=== PATIENT | female | born 1980 | race Caucasian/White ===

== ENCOUNTER 2018-06-26 03:35 | Inpatient (IN) | payer MEDICAID ==
[~2018-06-26] VITALS: Ht 160 cm; Wt 52.1 kg
[2018-06-26] MEDS ORDERED: normal saline 1000ML IV soln IVB ONE (03:55)
[2018-06-26 04:16] LABS: BASOPHILS % (AUTO) 0.1 % (0-1); EOSINOPHILS # (AUTO) 0.1 X10'3 (0-0.9); EOSINOPHILS % (AUTO) 1.8 % (0-6); HEMATOCRIT 41.9 % (35.0-45.0); HEMOGLOBIN 13.9 g/dl (12.0-16.0); MEAN CORPUSCULAR HEMOGLOBIN 31.3 PG (27.0-31.0); MEAN CORPUSCULAR HGB CONC 33.1 % (33.0-36.5); MEAN CORPUSCULAR VOLUME 94.7 FL (78-98); MEAN PLATELET VOLUME 7.9 FL (7.4-10.4); MONOCYTES # (AUTO) 0.6 X10'3 (0-0.9); MONOCYTES % (AUTO) 7.3 % (2-12); NEUTROPHILS # (AUTO) 4.2 X10'3 (1.8-7.7); NEUTROPHILS % (AUTO) 52.8 % (42-75); PLATELET COUNT 393 X10'3 (140-440); RED BLOOD COUNT 4.42 X10'6 (4.20-5.60); RED CELL DISTRIBUTION WIDTH 13.4 % (11.5-14.5)
[2018-06-26 04:39] LABS: ALANINE AMINOTRANSFERASE 15 U/L (12-78); ALBUMIN 4.3 G/DL (3.4-5.0); ALBUMIN/GLOBULIN RATIO 1.3 (1.1-1.5); ALKALINE PHOSPHATASE 61 IU/L (46-116); ANION GAP 9 (8-16); ASPARTATE AMINO TRANSFERASE 9 U/L (10-37); BILIRUBIN,TOTAL 0.3 MG/DL (0.1-1.0); BLOOD UREA NITROGEN 9 MG/DL (7-18); BUN/CREATININE RATIO 13.2 (6.6-38.0); CALCIUM 9.6 MG/DL (8.5-10.1); CHLORIDE 104 MMOL/L (99-107); CREATININE 0.68 MG/DL (0.40-0.90); GLUCOSE 181 MG/DL (70-104); POTASSIUM 3.4 MMOL/L (3.5-5.1); SODIUM 141 MMOL/L (135-145); TOTAL CARBON DIOXIDE 27.7 MMOL/L (24-32); TOTAL PROTEIN 7.5 G/DL (6.4-8.2); eGFR > 90 ML/MIN
[2018-06-26 04:46] LABS: MAGNESIUM 2.1 MG/DL (1.5-2.4)
[2018-06-26 04:51] LABS: D-DIMER < 0.19 MG/L FEU (0-0.50); INR 0.9 INR; PARTIAL THROMBOPLASTIN TIME 24 SECONDS (22-32); PROTHROMBIN TIME 9.6 SECONDS (9.0-12.0)
[2018-06-26] MEDS ORDERED: diphenhydrAMINE 50 mg/ml inj IV ONE (04:55)
[2018-06-26] MEDS ORDERED: proCHLORperazine 10 MG/2 ml inj IV ONE (04:55)
[2018-06-26] MEDS ORDERED: potassium Cl 20 mEq SR tablet PO ONE (05:25)
[2018-06-26] MEDS ORDERED: UNABLE TO OBTAIN (07:27)
[2018-06-26] MEDS ORDERED: iohexol 350MG/ML 100ml bottle IV ONE (07:48)
[2018-06-26] MEDS ORDERED: CLOP75TA35 PO (07:52)
[2018-06-26] MEDS ORDERED: ASPI-1265 PO (07:52)
[2018-06-26] MEDS ORDERED: GABA-530 PO (07:52)
[2018-06-26] MEDS ORDERED: HYDR-4069 PO (07:52)
[2018-06-26] MEDS ORDERED: ATOR20TA PO (07:52)
[2018-06-26] MEDS ORDERED: LISI-600 PO (07:52)
[2018-06-26] MEDS ORDERED: TRAZ150T78 PO (07:52)
[2018-06-26] MEDS ORDERED: OXYC15TA48 PO (07:52)
[2018-06-26] MEDS ORDERED: LORA10TA7 PO (07:52)
[2018-06-26] MEDS ORDERED: ALPR-624 PO (07:52)
[2018-06-26] MEDS ORDERED: PROM25TA14 PO (07:52)
[2018-06-26] MEDS ORDERED: clopidogrel 75mg tablet PO SCH (08:00)
[2018-06-26 08:11] LABS: CHOL/HDL RATIO 2.1 (0.00-4.99); CHOLESTEROL 199 MG/DL (0-200); HDL CHOLESTEROL 96 MG/DL (35-60); LDL CHOLESTEROL 95 MG/DL (50-100); TRIGLYCERIDES 44 MG/DL (20-135)
[2018-06-26 08:23] LABS: HEMOGLOBIN A1C 9.5 % (4.5-6.2)
[2018-06-26] MEDS: clopidogrel 75mg tablet PO SCH (09:53)
[2018-06-26] MEDS: aspirin 81mg tab.chew PO SCH (09:53)
[2018-06-26] MEDS: normal saline 1000ml 1,000 ML IV SCH ×2 (09:53→21:45)
[2018-06-26 10:00] VITALS: BP 127/80
[2018-06-26] MEDS ORDERED: LORazepam 2 mg/ml vial IV ONE (10:15)
[2018-06-26] MEDS ORDERED: oxyCODONE IR 5mg (immed. release) tablet PO PRN ×2 (10:15→15:45)
[2018-06-26] MEDS ORDERED: HYDROmorphone inj. 0.5 MG/0.5 ML DISP.SYRIN IV PRN ×2 (10:55→11:00)
[2018-06-26] MEDS: HYDROmorphone 1 mg/ml syringe IV PRN ×3 (11:54→19:45)
[2018-06-26] MEDS ORDERED: gadopentetate dimeglumine 7.5 MMOL/15 ML syringe ONE (13:43)
[2018-06-26 14:00] VITALS: BP 127/84
[2018-06-26 14:12] LABS: URINE AMPHETAMINE SCREEN NEGATIVE (Neg); URINE BARBITUATE SCREEN NEGATIVE (Neg); URINE BENZODIAZEPINES SCREEN POSITIVE (Neg); URINE CANNABINOID SCREEN NEGATIVE (Neg); URINE COCAINE SCREEN NEGATIVE (Neg); URINE METHADONE SCREEN NEGATIVE (Neg); URINE OPIATE SCREEN POSITIVE (Neg); URINE PHENCYCLIDINE SCREEN NEGATIVE (Neg)
[2018-06-26] MEDS: gabapentin 300mg capsule PO SCH (19:44)
[2018-06-26 20:00] VITALS: BP 133/86
[2018-06-26] MEDS ORDERED: atorvastatin 20mg tablet PO SCH ×2 (21:00)
[2018-06-27] VITALS: BP 122/60
[2018-06-27] MEDS: HYDROmorphone 1 mg/ml syringe IV PRN ×3 (00:34→10:00)
[2018-06-27 04:00] VITALS: BP 115/47
[2018-06-27 05:27] LABS: BASOPHILS % (AUTO) 0.5 % (0-1); EOSINOPHILS # (AUTO) 0.2 X10'3 (0-0.9); HEMOGLOBIN 11.8 g/dl (12.0-16.0); LYMPHOCYTES # (AUTO) 2.5 X10'3 (1.1-4.8); LYMPHOCYTES % (AUTO) 42.4 % (21-51); MEAN CORPUSCULAR HEMOGLOBIN 31.9 PG (27.0-31.0); MEAN CORPUSCULAR HGB CONC 33.5 % (33.0-36.5); MEAN CORPUSCULAR VOLUME 95.1 FL (78-98); MONOCYTES # (AUTO) 0.3 X10'3 (0-0.9); NEUTROPHILS # (AUTO) 2.7 X10'3 (1.8-7.7); NEUTROPHILS % (AUTO) 47.1 % (42-75); PLATELET COUNT 283 X10'3 (140-440); RED BLOOD COUNT 3.68 X10'6 (4.20-5.60); RED CELL DISTRIBUTION WIDTH 13.3 % (11.5-14.5); WHITE BLOOD COUNT 5.8 X10'3 (4.5-11.0)
[2018-06-27 06:00] VITALS: BP 132/83
[2018-06-27 06:00] LABS: ALANINE AMINOTRANSFERASE 14 U/L (12-78); ALBUMIN 2.9 G/DL (3.4-5.0); ALBUMIN/GLOBULIN RATIO 1.2 (1.1-1.5); ALKALINE PHOSPHATASE 50 IU/L (46-116); ANION GAP 5 (8-16); ASPARTATE AMINO TRANSFERASE 8 U/L (10-37); BILIRUBIN,TOTAL 0.2 MG/DL (0.1-1.0); BLOOD UREA NITROGEN 6 MG/DL (7-18); BUN/CREATININE RATIO 9.4 (6.6-38.0); CALCIUM 7.8 MG/DL (8.5-10.1); CHLORIDE 108 MMOL/L (99-107); CREATININE 0.64 MG/DL (0.40-0.90); GLUCOSE 186 MG/DL (70-104); SODIUM 141 MMOL/L (135-145); TOTAL CARBON DIOXIDE 27.7 MMOL/L (24-32); TOTAL PROTEIN 5.3 G/DL (6.4-8.2); eGFR > 90 ML/MIN
[2018-06-27 08:00] VITALS: BP 132/84
[2018-06-27] MEDS ORDERED: atorvastatin 20mg tablet PO SCH (08:00)
[2018-06-27] MEDS: gabapentin 300mg capsule PO SCH (08:06)
[2018-06-27] MEDS: clopidogrel 75mg tablet PO SCH (08:06)
[2018-06-27] MEDS: aspirin 81mg tab.chew PO SCH (08:06)
[2018-06-27 10:00] VITALS: BP 141/89
[2018-06-27] MEDS ORDERED: GABA300C PO (10:21)
[2018-06-27] MEDS ORDERED: ATOR20TA66 PO (10:21)
[2018-06-27] MEDS: normal saline 1000ml 1,000 ML IV SCH (12:03)
== END 2018-06-27 13:00 | disposition home or self-care (01) | DRG 47 ==
LOC: ER 03:36 → ED HOLD 07:27 → ORTHO 4S 08:45
PROVIDERS: ADMIT Family Medicine; ATTEND Family Medicine
PROC: B3251ZZ Computerized Tomography (CT Scan) of Bilateral Common Carotid Arteries using Low Osmolar Contrast (ICD-10-PCS; principal; 2018-06-26)
PROC: B3201ZZ Computerized Tomography (CT Scan) of Thoracic Aorta using Low Osmolar Contrast (ICD-10-PCS; 2018-06-26)
PROC: B3281ZZ Computerized Tomography (CT Scan) of Bilateral Internal Carotid Arteries using Low Osmolar Contrast (ICD-10-PCS; 2018-06-26)
DX: G45.9 Transient cerebral ischemic attack, unspecified (principal); I77.71 Dissection of carotid artery; I67.83 Posterior reversible encephalopathy syndrome; Q21.1 Atrial septal defect; F01.50 Vascular dementia, unspecified severity, without behavioral disturbance, psychotic disturbance, mood disturbance, and anxiety; E10.9 Type 1 diabetes mellitus without complications; E78.5 Hyperlipidemia, unspecified; E87.6 Hypokalemia; I10 Essential (primary) hypertension; Z96.41 Presence of insulin pump (external) (internal); F12.90 Cannabis use, unspecified, uncomplicated; I34.0 Nonrheumatic mitral (valve) insufficiency; F17.290 Nicotine dependence, other tobacco product, uncomplicated; Z88.8 Allergy status to other drugs, medicaments and biological substances; Z79.02 Long term (current) use of antithrombotics/antiplatelets; Z79.4 Long term (current) use of insulin; Z79.82 Long term (current) use of aspirin; Z79.899 Other long term (current) drug therapy; Z98.51 Tubal ligation status; Z87.442 Personal history of urinary calculi; Z81.1 Family history of alcohol abuse and dependence; Z82.3 Family history of stroke; Z82.49 Family history of ischemic heart disease and other diseases of the circulatory system; Z82.5 Family history of asthma and other chronic lower respiratory diseases; Z71.6 Tobacco abuse counseling
CPT/HCPCS: 36415; 70450; 70498; 70544; 70553; 71045; 80053; 80061; 80305; 80320; 82948; 83036; 83735; 84443; 85025; 85379; 85610; 85651; 85730; 87070; 92616; 93005; 93306; 93880; 96374; 96375; 97162; 99285; A9579; J0780; J1170; J1200; J2060; J7030; Q9967

== ENCOUNTER 2018-08-29 20:38 | Emergency (ER) | payer MEDICAID ==
[~2018-08-29] VITALS: Ht 160 cm; Wt 54.0 kg
[~2018-08-29 20:38] MED LIST: ALPR-624 PO; ASPI-1265 PO; ATOR20TA66 PO; CLOP75TA35 PO; GABA300C PO; HYDR-4069 PO; LISI-600 PO; LORA10TA7 PO; OXYC15TA48 PO; PROM25TA14 PO; TRAZ150T78 PO
[2018-08-29 21:13] LABS: BASOPHILS # (AUTO) 0.1 X10'3 (0-0.2); BASOPHILS % (AUTO) 1.2 % (0-1); EOSINOPHILS # (AUTO) 0.2 X10'3 (0-0.9); EOSINOPHILS % (AUTO) 2.1 % (0-6); HEMATOCRIT 38.7 % (35.0-45.0); HEMOGLOBIN 12.8 g/dl (12.0-16.0); LYMPHOCYTES # (AUTO) 1.7 X10'3 (1.1-4.8); LYMPHOCYTES % (AUTO) 21.8 % (21-51); MEAN CORPUSCULAR HEMOGLOBIN 31.1 PG (27.0-31.0); MEAN CORPUSCULAR VOLUME 94.4 FL (78-98); MEAN PLATELET VOLUME 7.8 FL (7.4-10.4); MONOCYTES # (AUTO) 0.5 X10'3 (0-0.9); MONOCYTES % (AUTO) 6.8 % (2-12); NEUTROPHILS # (AUTO) 5.3 X10'3 (1.8-7.7); NEUTROPHILS % (AUTO) 68.1 % (42-75); PLATELET COUNT 380 X10'3 (140-440); RED CELL DISTRIBUTION WIDTH 13.3 % (11.5-14.5); WHITE BLOOD COUNT 7.8 X10'3 (4.5-11.0)
[2018-08-29 21:29] LABS: INR 0.9 INR; PARTIAL THROMBOPLASTIN TIME 24 SECONDS (22-32); PROTHROMBIN TIME 9.4 SECONDS (9.0-12.0)
[2018-08-29 21:35] LABS: ALANINE AMINOTRANSFERASE 25 U/L (12-78); ALBUMIN 3.7 G/DL (3.4-5.0); ALBUMIN/GLOBULIN RATIO 1.2 (1.1-1.5); ALKALINE PHOSPHATASE 85 IU/L (46-116); ANION GAP 13 (8-16); ASPARTATE AMINO TRANSFERASE 15 U/L (10-37); BILIRUBIN,TOTAL 0.2 MG/DL (0.1-1.0); BLOOD UREA NITROGEN 11 MG/DL (7-18); BUN/CREATININE RATIO 11.7 (6.6-38.0); CALCIUM 9.2 MG/DL (8.5-10.1); CHLORIDE 100 MMOL/L (99-107); CREATININE 0.94 MG/DL (0.40-0.90); GLUCOSE 277 MG/DL (70-104); POTASSIUM 3.9 MMOL/L (3.5-5.1); SODIUM 137 MMOL/L (135-145); TOTAL CARBON DIOXIDE 23.8 MMOL/L (24-32); TOTAL PROTEIN 6.9 G/DL (6.4-8.2); eGFR 67 ML/MIN
[2018-08-29] MEDS ORDERED: proCHLORperazine 10 MG/2 ml inj IV ONE (22:40)
[2018-08-29] MEDS ORDERED: ondansetron 4mg rapidly disintigrating tab PO ONE (22:55)
[2018-08-29] MEDS ORDERED: acetaminophen 325mg tablet PO ONE (23:00)
[2018-08-29 23:48] VITALS: BP 118/71
== END 2018-08-29 23:52 | disposition home or self-care (01) ==
LOC: ER 20:40
DX: R07.89 Other chest pain (principal); R51 Headache; R00.2 Palpitations; E10.65 Type 1 diabetes mellitus with hyperglycemia; F12.90 Cannabis use, unspecified, uncomplicated; I10 Essential (primary) hypertension; F17.200 Nicotine dependence, unspecified, uncomplicated; Z98.51 Tubal ligation status; Z98.890 Other specified postprocedural states; Z86.73 Personal history of transient ischemic attack (TIA), and cerebral infarction without residual deficits; Z88.8 Allergy status to other drugs, medicaments and biological substances; Z79.82 Long term (current) use of aspirin; Z79.899 Other long term (current) drug therapy; Z79.4 Long term (current) use of insulin
CPT/HCPCS: 36415; 71045; 80053; 84484; 85025; 85379; 85610; 85730; 93005; 99284; J0780